=== PATIENT | male | born 1955 | race African-American/Black ===

== ENCOUNTER 2019-07-09 15:48 | Inpatient (IN) | payer MEDICARE, MEDICAID ==
[2019-07-09] MEDS ORDERED: Ketorolac Tromethamine 30 MG/ML VIAL IVP PRN (17:35)
[2019-07-09] MEDS ORDERED: Morphine 2 MG/ML SYRINGE SLOW IVP PRN (17:35)
[2019-07-09] MEDS ORDERED: Ondansetron PF 4 MG/2 ML Vial IVP PRN ×2 (17:35→20:17)
[2019-07-09] MEDS ORDERED: D5 1/2 NS w/20 mEq KCL 1,000 ML IV SCH (17:45)
[2019-07-09 18:12] VITALS: BMI 19.6
[2019-07-09] MEDS ORDERED: Ondansetron ODT 4 MG TAB PO PRN (20:17)
[2019-07-09] MEDS ORDERED: Guaifenesin DM 100-10/5 ML UDCUP PO PRN (20:17)
[2019-07-09] MEDS ORDERED: Acetaminophen 650 MG Suppository PR PRN (20:17)
[2019-07-09] MEDS ORDERED: Labetalol HCl 100 MG/20 ML VIAL SLOW IVP PRN (20:18)
[2019-07-09] MEDS ORDERED: hydrALAZINE 20 MG/ML VIAL SLOW IVP PRN (20:19)
[2019-07-09] MEDS ORDERED: Sodium Chloride 0.9% (PF) 10 ML VIAL FS PRN (20:29)
[2019-07-09] MEDS ORDERED: Famotidine/PF 20 mg/2ml Vial SLOW IVP SCH (21:00)
--- NOTE | 2019-07-09 21:20 | HP ---
PRIMARY CARE DOCTOR: Previously, Dr. Hendricks. CHIEF COMPLAINT: Abdominal pain. HISTORY OF PRESENT ILLNESS: This is a 64-year-old male with a history of hypertension, pancreatitis a few years ago, worked up at [facility], likely alcohol-related and chronic constipation, who had some anemia a few years ago and had negative EGD and colonoscopy in the hospital. The patient reports over the last 5 days, he has been having periumbilical abdominal pain. His pain is getting slowly worse over that time, not radiating anywhere, not associated with any nausea or vomiting. The pain is crampy in nature. He does report having had constipation previously and he is on laxatives for it and he has not had any bowel movements for the last few days. He tried MiraLAX and [id number] laxatives without any improvement. He is passing some flatus. Denied any blood or melena in his bowel movements before he stopped passing them. They were just constipated. The patient was seen in [facility]. There, he was noted to have a distended abdomen. He had a CT scan done, which showed likely partially obstructing colonic mass along with lymphadenopathy concerning for cancer. He also had some dilatation of his pancreatic duct and some lesions in his pancreas, uncertain if those are old or related to his previous pancreatitis or they were new. He also had a very elevated lipase over 1000. The patient was given some pain medications and fluids in the emergency room there and is feeling much more comfortable and was transferred here for surgical consultation. REVIEW OF SYSTEMS: CONSTITUTIONAL: No fevers, no chills. No weight loss. EYES: No double vision or blurred vision. ENT: No congestion, drainage, or sore throat. CARDIOVASCULAR: No chest pain. No palpitations or racing heart. PULMONARY: No coughing, wheezing, or shortness of breath. GASTROINTESTINAL: See HPI. GENITOURINARY: No dysuria or hematuria. MUSCULOSKELETAL: No muscle aches or joint pains. He does have some chronic low back pain, which is at baseline. SKIN: No rashes or lesions noted. NEUROLOGICAL: No numbness, tingling, or focal weakness. PAST MEDICAL HISTORY: 1. Hypertension. 2. Gastroesophageal reflux disease. 3. Chronic low back pain and cervical radiculopathy. 4. Previous bout of pancreatitis with questionable pseudocyst. PAST SURGICAL HISTORY: EGD and colonoscopy in 2017, which were normal except for some melanosis coli. SOCIAL HISTORY: The patient is a former smoker. He now just smokes a cigarette or a cigar on and off infrequently. He does report previously drinking alcohol 3-4 beers per day, but has not had any in the last 2 months. No recent illicit drug use. He did previously smoke marijuana. The patient lives with his significant other, Dulce Benavidez. His closest next of kin is his younger brother, Manan Arellano who would be his medical decision maker and he is currently a full code. ALLERGIES: NO KNOWN DRUG ALLERGIES. CURRENT MEDICATIONS: 1. Amlodipine 10 mg daily. 2. Vitamin C 500 mg daily. 3. Flexeril 10 mg daily as needed. 4. Colace 100 mg twice a day as needed. 5. Ferrous sulfate 325 mg twice [place] [address] units two capsules three times a day after meals and one capsule after snacks. 7. Multivitamin daily. 8. Urinozinc prostate formula tablet one tablet daily. 9. Omeprazole 20 mg daily. 10. Sennosides 2 tablets at night. FAMILY HISTORY: He reports his mother had diabetes and heart disease. The patient denied to me any family history of colon cancer. However, on his previous H and P from 2017, he reported both his mother and grandmother had colon cancer. PHYSICAL EXAMINATION: VITAL SIGNS: Blood pressure 141/82. Pulse 98, it was up above 100 initially in the [facility]. Temperature 99.2, O2 saturation 95% on room air. GENERAL: This is a well-developed, well-nourished, -[place] male, in no acute distress. HEENT: Pupils are equal, round, and reactive to light. Oropharynx clear without lesions, erythema, or exudate. NECK: Supple. No lymphadenopathy. No thyroid nodules or enlargement. HEART: Regular rate and rhythm. No murmurs, rubs, or gallops. LUNGS: Clear to auscultation bilaterally. No wheezes, crackles, or rhonchi. ABDOMEN: Distended, firm to palpation. Mild tenderness to deep palpation diffusely. He has hyperactive bowel sounds. No rebound tenderness. No specific organomegaly. EXTREMITIES: No clubbing, cyanosis, or edema. SKIN: No rashes or lesions noted. NEUROLOGICAL: Intact strength and sensation to all extremities. No facial droop. PSYCHIATRIC: Alert and oriented x3. Normal mood and affect. LABORATORY DATA: White blood cell count of 12,000 with 83% neutrophils, hemoglobin 12.8, hematocrit 39.3, platelet count 645. Complete metabolic panel is notable for glucose of 143, creatine kinase of 28, and lipase is elevated at 1333, the rest was normal. Lactic acid was negative. Urinalysis showed greater than a [address] glucose[address] No other abnormalities. CT scan of the abdomen and pelvis with IV contrast shows marked circumferential wall thickening causing narrowing of the colon lumen of the distal transverse colon and splenic flexure. Overall findings were suspicious for a large colonic malignancy causing partial colonic obstruction with dilatation of the proximal transverse colon, ascending colon, and small bowel. Also with some enlarged soft tissue nodularity involving the mesentery of the transverse mesocolon and left upper quadrant, small bowel mesentery suspicious for regional metastatic extension. The patient does have some interval enlargement of the distal main pancreatic duct with hypodense lesions now seen within the pancreatic tail suspicious for an IPMN type tumor. There are some small bilateral pleural effusions. Enlarging right renal cyst and mild to moderate free fluid in the pelvis. ASSESSMENT: 1. Acute pancreatitis, likely secondary to previous alcohol use versus obstruction from his cancer. I will make the patient n.p.o. for now. We will give IV fluids with sugar and potassium and we will consult the patient's previous director of adult epilepsy, Dr. Russell. 2. Circumferential obstructing lesion of the colon concerning for colon cancer, metastatic to the lymph nodes. We will consult General Surgery, Dr. Ford in the morning. We will make the patient n.p.o. The patient will likely need surgery. 3. Hypertension. We will give IV antihypertensives as needed. 4. Gastroesophageal reflux disease. We will give IV Protonix. 5. Deep venous thrombosis prophylaxis. Put the patient on SCDs bilaterally for now. 6. History of alcohol use. The patient has not had alcohol in the last 2 month and unlikely to have any sort of withdrawals. No need for ASE protocol at this time. 7. Previous tobacco abuse. The patient seems to have nearly quit smoking at this time. 8. Code status. The patient is a full code. His closest kin is his younger brother, Manan Arellano. He would also like his significant other, Dulce Benavidez involved in medical decision should he be incapacitated. Job ID: [id number]
[2019-07-09] MEDS: D5 1/2 NS w/10 mEq KCl 1,000 ML/1,000 ML BAG IV SCH (21:44)
[2019-07-10] MEDS: D5 1/2 NS w/10 mEq KCl 1,000 ML/1,000 ML BAG IV SCH ×3 (05:47→20:30)
[2019-07-10 06:50] LABS: #Eosinphils 0.2 thou/uL (0.0-0.7); #Lymphocytes 1.4 thou/uL (1.20-3.40); #Monocytes 0.9 thou/uL (0.11-0.59); #Neutrophils 6.2 thou/uL (1.40-6.50); %Basophils 0.3 % (0.0-1.0); %Eosinophils 2.6 % (0.0-10.0); %Lymphocytes 15.8 % (21.0-51.0); %Monocytes 10.7 % (0.0-10.0); %Neutrophils 70.5 % (42.0-75.0); Hemoglobin 10.9 g/dL (14.0-18.0); Mean Corpuscular HGB CONC 32.9 g/dL (32.0-36.0); Mean Corpuscular Hemoglobin 30.4 pg (27.0-31.0); Mean Corpuscular Volume 92.5 fL (78.0-98.0); Mean Platelet Volume 6.5 fL (7.4-10.4); Platelet Count 554 thou/uL (130-400); Red Blood Cell (RBC) Count 3.58 mill/uL (4.70-6.10); White Blood Cell (WBC) Count 8.8 thou/uL (4.8-10.8)
[2019-07-10 07:16] LABS: Anion Gap 11 mmol/L (10-20); BUN (Urea Nitrogen) 6 mg/dL (8.4-25.7); Calc. Creatinine Clearance 78 mL/min (70-130); Calcium 7.8 mg/dL (7.8-10.44); Carbon Dioxide 20 mmol/L (23-31); Chloride 104 mmol/L (98-107); Estimated GFR-MDRD Greater than 90; Glucose 118 mg/dL (80-115); Potassium 4.2 mmol/L (3.5-5.1); Sodium 131 mmol/L (136-145)
[2019-07-10] MEDS: Pantoprazole 40 MG VIAL IVP SCH (08:25)
[2019-07-10] MEDS ORDERED: GoLYTELY 4,000 ml Bottle PO SCH (09:00)
--- NOTE | 2019-07-10 11:07 | CON ---
DATE OF CONSULTATION: 07/10/2019 HISTORY OF PRESENT ILLNESS: Mr. Arellano is a 64-year-old man, who was admitted with worsening abdominal pain, distention, and inability to have bowel movements. The patient has a long-standing history of chronic constipation, which requires courses of stool softeners and laxatives. His abdominal distention has worsened over the last 2 weeks. As a result, the patient presented to the emergency department. He denies any unexplained weight loss. He denies any fevers or chills. He denies any hematochezia or melena. He last passed gas from the bottom this morning. He had a large loose bowel movement overnight. PAST MEDICAL HISTORY: Pertinent for recurrent chronic pancreatitis, which was presumed to be secondary to alcohol. Other pertinent past medical history includes chronic anemia, gastroesophageal reflux disease, and essential hypertension. PAST SURGICAL HISTORY: Pertinent for upper and lower endoscopies in 2017 with findings at that time consistent with melanosis coli and no lesions to explain the cause of his severe anemia with hemoglobin, which was as low as 4 g/dL. The patient apparently has had an outpatient endoscopic ultrasound to evaluate his pancreas as well. SOCIAL HISTORY: The patient used to smoke approximately half a pack of cigarettes per day and did so for over 20 years. He has not smoked now since 2018. He used to drink heavily including 3 to 4 beers per day in addition to hard liquor. He has not had any alcohol by his account over the last 2 months. He denies any illicit drug abuse. FAMILY HISTORY: Noncontributory for this patient's age. PREHOSPITAL MEDICATIONS: Include: 1. Ferrous sulfate 325 mg p.o. b.i.d. 2. Vitamin C 500 mg p.o. daily. 3. Creon DR 36,000 units two capsules t.i.d. 4. Amlodipine 10 mg p.o. daily. 5. Flexeril 10 mg p.o. p.r.n. 6. Colace 100 mg p.o. b.i.d. p.r.n. constipation. 7. Omeprazole 20 mg p.o. daily. 8. Sennosides two tablets p.o. at bedtime. ALLERGIES: THE PATIENT HAS NO KNOWN DRUG ALLERGIES. REVIEW OF SYSTEMS: Ten-point review of systems is essentially unremarkable except as stated in past medical history and chief complaint. PHYSICAL EXAMINATION: GENERAL: This reveals a 64-year-old normally-developed man, who is otherwise coherent, interactive, and appears stated age. The patient is alert and oriented x3, appears to be in no acute distress at time of my evaluation. VITAL SIGNS: Include blood pressure 113/75, pulse 85, respiratory rate 20, temperature 98.5 degrees Fahrenheit, oxygen saturation is 98% on room air. HEENT: Pupils equally round and reactive to light and accommodation. He has no scleral icterus present. HEART: Reveals regular rate and rhythm. No murmurs or gallops auscultated. LUNGS: Clear to auscultation bilaterally. Breathing, regular and nonlabored. ABDOMEN: Soft, but distended with gas. He has no abdominal tenderness to palpation. Liver and spleen are nonpalpable below costal margins. NEUROLOGIC: Reveals no focal deficits present. LABORATORY FINDINGS: Today include a CBC with 8800 white blood cells, hemoglobin and hematocrit 10.9 and 33.2 respectively, and platelet count is 554,000. Metabolic profile; sodium 131, potassium 4.2, chloride is 104, bicarb is 20, BUN is 6, creatinine is 0.78, and glucose 118. The metabolic profile obtained yesterday in [place] included serum lipase noted at 1333. I have personally reviewed the CT scan of the abdomen and pelvis, which was obtained yesterday, which reveals large mass causing near obstruction of the distal transverse colon. Additionally, 1.3 cm lesion is noted in the pancreatic tail. There is some soft tissue nodularity involving the transverse mesocolon as well. Qchn-yw-[id number] free intraperitoneal fluid is noted. IMPRESSION: 1. Acute large bowel obstruction, likely secondary to neoplastic process, unsure if this is a primary or metastatic disease. 2. Pancreatic lesion with acute pancreatitis. RECOMMENDATIONS: 1. We will ask Gastroenterology to evaluate the patient for possible colonoscopy and biopsy. 2. The patient will certainly need a surgical intervention, however, we will defer plans for surgery pending the outcome of the colonoscopy with biopsy. Thank you again, Dr. Anne, for allowing me the opportunity to participate in the care of this patient. Job ID: [id number]
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
--- NOTE | 2019-07-10 20:40 | PDOC.HOSPP ---
- Subjective Encounter Date: 07/10/19 Subjective: The patient is tolerating bowel prep. - Objective Vital Signs & Weight: Vital Signs (12 hours) Temp Pulse Resp BP Pulse Ox 07/10/19 16:00 98.2 F 82 20 138/83 99 07/10/19 11:35 97.8 F 78 20 141/84 H 95 Weight Admit Weight 129 lb 4.8 oz Weight 129 lb 4.8 oz I&O: 07/09/19 07/10/19 07/11/19 06:59 06:59 06:59 Intake Total 1150 4550 Output Total 350 Balance 1150 4200 Result Diagrams: 07/10/19 05:57 07/10/19 05:57 Hospitalist ROS - Medication Medications: Active Medications Generic Name Dose Route Start Last Admin Trade Name Freq PRN Reason Stop Dose Admin Potassium Chloride/Dextrose/Sod Cl 1,000 ml in 1,000 mls @ 125 mls/hr 20:30 07/10/19 13:58 D5 1/2 Ns W/10 Meq Kcl IV 1,000 mls .Q8H GABRIELA Administration Pantoprazole Sodium 40 mg 07/10/19 09:00 07/10/19 08:25 Protonix IVP 40 mg DAILY GABRIELA Administration - Exam General Appearance: awake alert ENT: normocephalic atraumatic Neck: supple, no JVD Heart: RRR, no murmur, no gallops, no rubs Respiratory: CTAB Gastrointestinal: soft, non-tender, distended Hosp A/P (1) Colonic mass Code(s): K63.89 - OTHER SPECIFIED DISEASES OF INTESTINE Status: Acute (2) Pancreatic mass Status: Acute (3) Chronic anemia Code(s): D64.9 - ANEMIA, UNSPECIFIED Status: Acute (4) Chronic back pain Code(s): M54.9 - DORSALGIA, UNSPECIFIED; G89.29 - OTHER CHRONIC PAIN Status: Chronic (5) HTN (hypertension) Code(s): I10 - ESSENTIAL (PRIMARY) HYPERTENSION Status: Chronic Qualifiers: - Plan Plan for colonoscopy and biopsy for colon mass tomorrow. Continue current medical management. Appreciate GI and Surgery teama.
--- NOTE | 2019-07-10 22:51 | PRG ---
DATE OF SERVICE: 07/10/2019 SUBJECTIVE: The patient was seen this evening during rounds. He was on the bedside commode and reported he had no distress. The patient is currently drinking GoLYTELY as he is scheduled to have a colonoscopy with biopsy tomorrow by Gastroenterology. OBJECTIVE: VITAL SIGNS: Temperature 98.2, pulse 82, respirations 20, oxygen saturation 99% on room air, and blood pressure 138/83. GENERAL: Well-appearing elderly male, sitting up on the bedside commode. No signs of acute distress. PULMONARY: Equal chest rise and fall. No signs of acute respiratory distress. ASSESSMENT: 1. Acute large bowel obstruction, likely secondary to neoplastic process. Unsure if primary or metastatic disease. 2. Pancreatic lesion with acute pancreatitis. PLAN: The patient is currently finishing bowel prep and will receive colonoscopy and biopsy tomorrow by Gastroenterology. We will follow up biopsy results and plan further surgical intervention and make recommendations after the biopsy has resulted. Job ID: [id number]
[2019-07-11] MEDS: Morphine 4 MG/ML VIAL SLOW IVP PRN (03:56)
[2019-07-11] MEDS: D5 1/2 NS w/10 mEq KCl 1,000 ML/1,000 ML BAG IV SCH ×3 (03:58→18:28)
[2019-07-11 07:26] LABS: #Eosinphils 0.1 thou/uL (0.0-0.7); #Lymphocytes 1.1 thou/uL (1.20-3.40); #Monocytes 1.1 thou/uL (0.11-0.59); %Basophils 0.3 % (0.0-1.0); %Eosinophils 0.5 % (0.0-10.0); %Lymphocytes 8.6 % (21.0-51.0); %Monocytes 7.9 % (0.0-10.0); %Neutrophils 82.7 % (42.0-75.0); Mean Corpuscular HGB CONC 33.7 g/dL (32.0-36.0); Mean Corpuscular Hemoglobin 31.2 pg (27.0-31.0); Mean Corpuscular Volume 92.5 fL (78.0-98.0); Mean Platelet Volume 6.3 fL (7.4-10.4); Platelet Count 596 thou/uL (130-400); RBC Distribution Width 13.1 % (11.5-14.5); Red Blood Cell (RBC) Count 3.54 mill/uL (4.70-6.10); White Blood Cell (WBC) Count 13.3 thou/uL (4.8-10.8)
[2019-07-11 07:45] LABS: ALT (SGPT) 11 U/L (8-55); AST (SGOT) 13 U/L (5-34); Albumin 3.1 g/dL (3.4-4.8); Alkaline Phosphatase 69 U/L (40-110); Anion Gap 13 mmol/L (10-20); BUN (Urea Nitrogen) Less than 4 mg/dL (8.4-25.7); Bilirubin, Total 0.4 mg/dL (0.2-1.2); Calc. Creatinine Clearance 80 mL/min (70-130); Carbon Dioxide 19 mmol/L (23-31); Chloride 105 mmol/L (98-107); Estimated GFR-MDRD Greater than 90; Globulin 3.3 g/dL (2.4-3.5); Glucose 153 mg/dL (80-115); Lipase 454 U/L (8-78); Phosphorus 2.1 mg/dL (2.3-4.7); Potassium 3.8 mmol/L (3.5-5.1); Protein, Total 6.4 g/dL (5.8-8.1); Sodium 133 mmol/L (136-145)
[2019-07-11] MEDS ORDERED: Promethazine HCl 25 MG/ML VIAL SLOW IVP PRN (08:09)
[2019-07-11] MEDS ORDERED: Promethazine HCl 25 MG/ML VIAL IM PRN (08:09)
[2019-07-11] MEDS ORDERED: Ondansetron HCl/PF 4 MG/2 ML Vial IVP PRN (08:09)
--- NOTE | 2019-07-11 08:33 | OP ---
DATE OF PROCEDURE: 07/11/2019 SUPERVISOR ESTERS AND EMULSIFIERS SURGEON: None. PROCEDURE PERFORMED: Colonoscopy with biopsies. INDICATIONS FOR PROCEDURE: Acute large bowel obstruction, with CT demonstrating a circumferential mass lesion at the area of the splenic flexure and distal transverse colon, unclear if this represents primary or metastatic disease. MEDICATIONS: See Anesthesia record. FINDINGS: After discussion of the risks, benefits, and alternatives of the procedure, informed consent was obtained and witnessed. Pre-endoscopic cardiopulmonary examination was satisfactory. Time-out was performed before sedation was achieved. Sedation was achieved with Anesthesia assistance in the endoscopy unit. A Pentax adult colonoscope was prepared. Digital rectal exam was performed, which was normal. The colonoscope was inserted into the anus and passed forward to the cecum in the usual fashion. The cecal base was identified by the appendiceal orifice as well as the ileocecal valve. The terminal ileum was intubated, and the ileal mucosa appeared normal. The colonoscope was slowly withdrawn in a gradual circumferential manner with careful examination of the entire colonic mucosa. The quality of the prep was good. In the area of the splenic flexure from 40 to 60 cm from the anal verge, there is an area of diffuse colonic edema. For most of this area, the mucosa appears normal, but quite edematous. At 40 cm, there is a smaller portion of this area, which does appear indeed more masslike and more friable and more erythematous. Overall, the appearance of the area seems most concerning for extrinsic compression, except for this one area at 40 cm. Photodocumentation was obtained. I biopsied this area extensively. The remainder of the colonic mucosa appeared normal. Careful forward views of the rectum appeared normal. The colonoscope was completely withdrawn, and the patient allowed to recover. The patient tolerated the procedure well. There were no immediate postprocedure complications. IMPRESSION: 1. Diffuse edematous appearing mucosa from 40 to 60 cm in the area of the splenic flexure, with only a smaller portion at 40 cm appearing more masslike, with greater uricemia and nodularity. This area was biopsied extensively. Unable to definitively say if this process represents extrinsic compression. Photodocumentation obtained. Biopsied extensively. 2. Otherwise normal colonoscopy to the terminal ileum. RECOMMENDATIONS: 1. Full liquid diet. 2. Follow up results of biopsies. 3. Surgical Service is following as well. Job ID: [id number]
[2019-07-11] MEDS: Pantoprazole 40 MG VIAL IVP SCH (08:48)
[2019-07-11] MEDS ORDERED: Lidocaine 1% PF 5 ML VIAL ONE (11:48)
[2019-07-11] MEDS ORDERED: PROPOFOL 200 MG/20 ML VIAL ONE (11:48)
--- NOTE | 2019-07-11 13:25 | PRG ---
DATE OF SERVICE: 07/11/2019 SUBJECTIVE: Mr. Arellano is a 64-year-old man, admitted with near-obstructing transverse colonic mass. Bowel was prepped yesterday. The patient underwent a colonoscopy today, which did not reveal any obstructive mass. The endoscopy, however, reported some edematous-appearing mucosa, multiple areas of which was biopsied. At the time of my evaluation, the patient is awake and alert. He denies any significant abdominal pain. He clearly has no nausea. OBJECTIVE: VITAL SIGNS: Today include blood pressure 133/80, pulse is 101, respiratory rate is 20, temperature 98.5 degrees Fahrenheit, and oxygen saturation 98% on room air. ABDOMEN: Soft, moderately distended, but nontender to palpation. He clearly has no peritoneal signs on examination. LABORATORY FINDINGS: Today with CBC: 13,300 white blood cells, hemoglobin and hematocrit 11.0 and 32.7 respectively, and platelet count 596,000. Metabolic profile: Sodium 133, potassium 3.8, chloride is 105, bicarb 19, BUN 13, and creatinine 0.76. Serum lipase is 454, down from 1233 on 07/09/2019. IMPRESSIONS: 1. Resolving acute pancreatitis. 2. Status post colonoscopy with no evidence of colonic obstruction or abnormal mass. PLAN: No acute surgical indication for this patient at this time. We will await results of the biopsies and make further recommendations as necessary. The patient is started on clear liquid diet today, which may be advanced to regular at the discretion of the primary service. Job ID: [id number]
--- NOTE | 2019-07-11 20:20 | PDOC.HOSPP ---
- Subjective Encounter Date: 07/11/19 Subjective: Status post colonoscopy. The patient has no complaints and is tolerating his diet. - Objective Vital Signs & Weight: Vital Signs (12 hours) Temp Pulse Resp BP Pulse Ox 07/11/19 19:43 98.1 F 116 H 18 134/55 L 94 L 07/11/19 18:47 103 H 20 95 07/11/19 16:44 99.5 F 108 H 18 127/83 95 07/11/19 11:44 98.5 F 101 H 20 133/80 98 07/11/19 08:40 98 F 103 H 20 135/74 96 Weight Admit Weight 129 lb 4.8 oz Weight 129 lb 4.8 oz I&O: 07/10/19 07/11/19 07/12/19 06:59 06:59 06:59 Intake Total 1150 4550 2125 Output Total 350 1500 Balance 1150 4200 625 Result Diagrams: 07/11/19 06:58 07/11/19 06:58 Hospitalist ROS - Medication Medications: Active Medications Generic Name Dose Route Start Last Admin Trade Name Freq PRN Reason Stop Dose Admin Potassium Chloride/Dextrose/Sod Cl 1,000 ml in 1,000 mls @ 125 mls/hr 20:30 07/11/19 18:28 D5 1/2 Ns W/10 Meq Kcl IV 1,000 mls .Q8H GABRIELA Administration Morphine Sulfate 4 mg 07/09/19 20:17 07/11/19 03:56 Morphine SLOW IVP 4 mg Q4H PRN Administration Severe Pain (7-10) Pantoprazole Sodium 40 mg 07/10/19 09:00 07/11/19 08:48 Protonix IVP 40 mg DAILY GABRIELA Administration - Exam General Appearance: awake alert ENT: normocephalic atraumatic Neck: supple Heart: RRR, no murmur, no gallops, no rubs Respiratory: CTAB, no wheezes, no rales, no ronchi Gastrointestinal: soft, non-tender, non-distended, normal bowel sounds Hosp A/P (1) Colonic mass Code(s): K63.89 - OTHER SPECIFIED DISEASES OF INTESTINE Status: Acute (2) Pancreatic mass Status: Acute (3) Chronic anemia Code(s): D64.9 - ANEMIA, UNSPECIFIED Status: Acute (4) Chronic back pain Code(s): M54.9 - DORSALGIA, UNSPECIFIED; G89.29 - OTHER CHRONIC PAIN Status: Chronic (5) HTN (hypertension) Code(s): I10 - ESSENTIAL (PRIMARY) HYPERTENSION Status: Chronic Qualifiers: - Plan Colonoscopy did not reveal any colonic mass. Mucosal edema was noted in the area of the splenic flexure and biopsies were performed. Awaiting further recommendations from GI regarding the pancreatic lesion. No plan for surgical intervention at this time until the biopsy results are available.
[2019-07-11] MEDS: Ketorolac Tromethamine 30 MG/ML VIAL IVP PRN (20:25)
[2019-07-11] MEDS: Acetaminophen 325 MG TAB PO PRN (20:26)
--- NOTE | 2019-07-12 00:26 | PRG ---
DATE OF SERVICE: 07/11/2019 SUBJECTIVE: The patient was seen this evening during rounds. He is post colonoscopy with biopsy by Gastroenterology. He reported his pain was well controlled and he was tolerating a liquid diet. He was resting comfortably. OBJECTIVE: VITAL SIGNS: Temperature 98.1, pulse 110, respirations 18, oxygen saturation 97% on room air, and blood pressure 140/81. GENERAL: Well-appearing elderly male, lying in bed with no signs of acute distress. PULMONARY: Equal chest rise and fall. No signs of acute respiratory distress. ASSESSMENT: 1. Colon mass suspicious for malignancy, likely causing large bowel obstruction. 2. Pancreatic lesions concerning for malignancy as well. 3. Free abdominal fluid. PLAN: We are pending biopsy results from the colonoscopy completed today. We will make further recommendations after those results have been reported. Job ID: [id number]
[2019-07-12] MEDS: D5 1/2 NS w/10 mEq KCl 1,000 ML/1,000 ML BAG IV SCH ×3 (02:49→19:41)
[2019-07-12 06:12] LABS: Hemoglobin 9.9 g/dL (14.0-18.0); Mean Corpuscular HGB CONC 33.4 g/dL (32.0-36.0); Mean Corpuscular Hemoglobin 30.7 pg (27.0-31.0); Mean Corpuscular Volume 92.1 fL (78.0-98.0); Mean Platelet Volume 6.1 fL (7.4-10.4); Platelet Count 526 thou/uL (130-400); RBC Distribution Width 13.1 % (11.5-14.5); Red Blood Cell (RBC) Count 3.23 mill/uL (4.70-6.10); White Blood Cell (WBC) Count 11.2 thou/uL (4.8-10.8)
[2019-07-12 06:16] LABS: Band 3 % (5-11); Eosinophils 3 % (0-10); Lymphocytes 3 % (21-51); MDiff Complete? YES; Monocytes 8 % (0-10); Neutrophil 83 % (42-75)
[2019-07-12 06:25] LABS: Anion Gap 9 mmol/L (10-20); BUN (Urea Nitrogen) 6 mg/dL (8.4-25.7); Calc. Creatinine Clearance 80 mL/min (70-130); Calcium 7.8 mg/dL (7.8-10.44); Carbon Dioxide 22 mmol/L (23-31); Chloride 107 mmol/L (98-107); Estimated GFR-MDRD Greater than 90; Glucose 122 mg/dL (80-115); Magnesium 1.9 mg/dL (1.6-2.6); Potassium 4.1 mmol/L (3.5-5.1); Sodium 134 mmol/L (136-145)
[2019-07-12] MEDS: Pantoprazole 40 MG VIAL IVP SCH (07:51)
[2019-07-12] MEDS ORDERED: Sodium Phosphate 15 MMOL in Sodium Chloride 0.9% 250 ML 250 ML IVPB SCH (09:30)
--- NOTE | 2019-07-12 10:14 | PRG ---
DATE OF SERVICE: 07/12/2019 SUBJECTIVE: The patient remains on the medical floor. He is currently awake, alert, in no distress, talking on the telephone to his family. The patient continues to pass gas, states he has not had a bowel movement yet this morning. The patient is tolerating a full liquid diet at this time. The patient's pain is controlled at this time. The patient voices no complaints or concerns. The patient denies any nausea or vomiting. OBJECTIVE: VITAL SIGNS: Blood pressure 127/85; temperature high at 100, currently 98.4; pulse 93; respirations 18; SpO2 of 94% on room air. GENERAL: Well-appearing elderly male, in no acute distress. ABDOMEN: Soft, moderately distended, nontender to palpation. No peritoneal signs. EXTREMITIES: Moves all extremities. No focal deficits. LABORATORY DATA: WBC 11.2, RBC 3.23, hemoglobin 9.9, hematocrit 29.8, platelets 526. Sodium 134, potassium 4.1, chloride 107, carbon dioxide 22, BUN 6, creatinine 0.76, estimated GFR greater than 90, glucose 122, calcium 7.8, phosphorus 2.0, magnesium 1.9. DIAGNOSTICS: There are no diagnostics to review today. ASSESSMENT: 1. Resolving acute pancreatitis. 2. Status post colonoscopy with no evidence of colonic obstruction or abdominal mass. 3. Hypophosphatemia. PLAN: No surgical indication for this patient at this time. We will await results of the biopsy and make further recommendations as necessary. Continue full liquid diet and may advance to regular at the discretion of the primary service. The plan was discussed with Dr. Ford. Job ID: [id number]
[2019-07-12] MEDS: Ketorolac Tromethamine 30 MG/ML VIAL IVP PRN ×2 (13:02→20:16)
[2019-07-12] MEDS: Morphine 4 MG/ML VIAL SLOW IVP PRN (15:49)
--- NOTE | 2019-07-12 20:35 | PDOC.HOSPP ---
- Subjective Encounter Date: 07/12/19 Encounter Time: 09:00 Subjective: no overnight events. Feeling well, has soft bowel movements, no complaints. pending results of splenic flexure biopsy - Objective Vital Signs & Weight: Vital Signs (12 hours) Temp Pulse Resp BP Pulse Ox 07/12/19 19:47 99.4 F 113 H 18 121/70 92 L 07/12/19 15:48 98.2 F 100 20 125/84 97 07/12/19 13:00 98.6 F 07/12/19 09:07 98.4 F Weight Admit Weight 129 lb 4.8 oz Weight 129 lb 4.8 oz I&O: 07/11/19 07/12/19 07/13/19 06:59 06:59 06:59 Intake Total 4550 3775 2125 Output Total 350 2600 1200 Balance 4200 1175 925 Result Diagrams: 07/12/19 05:49 07/12/19 05:49 Additional Labs: Accuchecks 07/12/19 07/12/19 16:22 12:09 POC Glucose 134 H 109 Hospitalist ROS - Review of Systems Constitutional: denies: fever, chills, sweats, weakness, malaise, other Respiratory: denies: cough, dry, shortness of breath, hemoptysis, SOB with excertion, pleuritic pain, sputum, wheezing, other Cardiovascular: denies: chest pain, palpitations, orthopnea, paroxysmal noc. dyspnea, edema, light headedness, other Gastrointestinal: denies: nausea, vomiting, abdominal pain, diarrhea, constipation, melena, hematochezia, other Genitourinary: denies: dysuria, frequency, incontinence, hematuria, retention, other - Medication Medications: Active Medications Generic Name Dose Route Start Last Admin Trade Name Freq PRN Reason Stop Dose Admin Acetaminophen 650 mg 07/09/19 20:17 07/11/19 20:26 Tylenol PO 650 mg Q4H PRN Administration Headache/Fever/Mild Pain (1-3) Potassium Chloride/Dextrose/Sod Cl 1,000 ml in 1,000 mls @ 125 mls/hr 20:30 07/12/19 19:41 D5 1/2 Ns W/10 Meq Kcl IV 1,000 mls .Q8H GABRIELA Administration Ketorolac Tromethamine 15 mg 07/09/19 20:17 07/12/19 20:16 Toradol IVP 07/14/19 20:18 15 mg Q6H PRN Administration Moderate Pain (4-6) Morphine Sulfate 4 mg 07/09/19 20:17 07/12/19 15:49 Morphine SLOW IVP 4 mg Q4H PRN Administration Severe Pain (7-10) Pantoprazole Sodium 40 mg 07/10/19 09:00 07/12/19 07:51 Protonix IVP 40 mg DAILY GABRIELA Administration Sodium Chloride 10 ml 07/09/19 20:29 07/12/19 07:51 Normal Saline Pf FS 10 ml PRN PRN Administration RECONSTITUTION - Exam General Appearance: awake alert Heart: RRR, no murmur, no gallops, no rubs, normal peripheral pulses Respiratory: CTAB, no wheezes, no rales, no ronchi, normal chest expansion, no tachypnea, normal percussion Gastrointestinal: soft, non-tender, non-distended, normal bowel sounds, no palpable masses, no hepatomegaly, no splenomegaly, no bruit Extremities: no edema Psychiatric: normal affect, normal behavior, A&O x 3 Hosp A/P - Plan #pancreatic mass #splenic flexure edema -pending biopsy results -tolerating full liquid -advanced to pureed diet otherwise management unchanged
[2019-07-13] MEDS: D5 1/2 NS w/10 mEq KCl 1,000 ML/1,000 ML BAG IV SCH ×3 (04:42→20:01)
--- NOTE | 2019-07-13 05:55 | PRG ---
DATE OF SERVICE: 07/12/2019 SUBJECTIVE: This 64-year-old male hospitalized with abdominal pain and nausea, abnormal CAT scan. The CAT scan showed pancreatic tail mass and also a splenic flexure mass. He underwent colonoscopy by Dr. Bonilla Perera yesterday. The colonoscopy did show a mass lesion in the left colon, but appears to be extrinsic compression as per Dr. Bonilla Perera's note. He is on clear liquid diet. He is also on IV fluid and actually better. He has no abdominal pain at this time. No nausea , passing flatus and not . OBJECTIVE: GENERAL: Appears comfortable, in no acute distress. VITAL SIGNS: Stable. Temperature is 98.4 degrees Fahrenheit, pulse is 85, blood pressure CARDIOVASCULAR SYSTEM: First and second sounds are heard. LUNGS: Clear to auscultation. ABDOMEN: Distended and soft to firm. Abdomen has actually no tenderness. Active bowel . LABORATORY DATA: Today WBC 11,200, hemoglobin is 9.9, hematocrit 29.8, platelet count is 526,000, polymorphs 83, bands 3. Chem-7 normal today. Glucose 122. . CLINICAL IMPRESSION: 1. Pancreatic mass. 2. Colonic mass with partial compression of the left colon. The scope could be advanced all the way into the ileum without any difficulty. The biopsies are pending. RECOMMENDATIONS: Continue analgesics. Continue clear liquid diet, advance diet as tolerated if he remains pain-free. The patient will be seen by Dr. Ford . Job ID: [id number]
[2019-07-13] MEDS: Pantoprazole 40 MG VIAL IVP SCH (08:45)
--- NOTE | 2019-07-13 09:15 | PRG ---
DATE OF SERVICE: 07/13/2019 SUBJECTIVE: This is a 64-year-old male, hospitalized with abdominal pain nausea. The patient's abdominal CAT scan showed pancreatic mass over the tail of the pancreas and also a mass lesion in the splenic flexure of the colon. He had a colonoscopy by Dr. Bonilla Perera 2 days ago and the impression was that he is most likely extrinsic compression. He had a mass lesion of the left colon, which was biopsied. As per Dr. Perera, he feels this . Also, the scope could be advanced into the cecum without difficulty. He is on clear liquid diet. He is passing gas and also had some liquid stool. Abdominal pain is markedly improved. There is no nausea or vomiting. PHYSICAL EXAMINATION: GENERAL: Appears comfortable. VITAL SIGNS: Afebrile, pulse is 97, blood pressure 131/81. HEENT: Conjunctivae are clear. CARDIOVASCULAR: 1st and 2nd heart sound. LUNGS: Clear to auscultation. ABDOMEN: Distended, but softer than yesterday. Abdomen is nontender today. There is no organomegaly. No masses. IMPRESSION: 1. Pancreatic mass. 2. Colonic mass with colonoscopy showing a lesion at 40 cm. Biopsies pending. RECOMMENDATIONS: 1. Continue present treatment. 2. Await biopsy and decide further course of therapy. Job ID: [id number]
[2019-07-13] MEDS: Acetaminophen 325 MG TAB PO PRN (12:53)
--- NOTE | 2019-07-13 13:32 | PRG ---
DATE OF SERVICE: 07/13/2019 SUBJECTIVE: The patient remains on the medical floor. He is currently awake, alert, in no distress, talking on the telephone. The patient continues to have bowel movements and passing gas. The patient continues to tolerate a full liquid diet. The patient voices no complaints or concerns at this time. The patient continues to have some mild diffuse abdominal pain, which is unchanged. Abdomen remains distended, but soft. No peritoneal signs. Surgery will continue to follow. Awaiting biopsy results to make further recommendations. Again, no surgical indication for this patient at this time. The plan was discussed with Dr. Ford. Job ID: [id number]
[2019-07-13] MEDS: Ketorolac Tromethamine 30 MG/ML VIAL IVP PRN (20:00)
--- NOTE | 2019-07-13 20:58 | PDOC.HOSPP ---
- Subjective Encounter Date: 07/13/19 Encounter Time: 10:00 Subjective: no overnight events. tolerating solid diet and having regular bowel movements. Further management pending bipsy results - Objective Vital Signs & Weight: Vital Signs (12 hours) Temp Pulse Resp BP Pulse Ox 07/13/19 19:47 100.9 F H 99 20 154/84 H 92 L 07/13/19 16:05 98.0 F 91 07/13/19 11:50 98.9 F 96 Weight Admit Weight 129 lb 4.8 oz Weight 129 lb 4.8 oz I&O: 07/12/19 07/13/19 07/14/19 06:59 06:59 06:59 Intake Total 3775 3825 2100 Output Total 2600 2200 1050 Balance 1175 1625 1050 Result Diagrams: 07/12/19 05:49 07/12/19 05:49 Hospitalist ROS - Review of Systems Constitutional: denies: fever, chills, sweats, weakness, malaise, other Respiratory: denies: cough, dry, shortness of breath, hemoptysis, SOB with excertion, pleuritic pain, sputum, wheezing, other Cardiovascular: denies: chest pain, palpitations, orthopnea, paroxysmal noc. dyspnea, edema, light headedness, other Gastrointestinal: denies: nausea, vomiting, abdominal pain, diarrhea, constipation, melena, hematochezia, other Genitourinary: denies: dysuria, frequency, incontinence, hematuria, retention, other - Medication Medications: Active Medications Generic Name Dose Route Start Last Admin Trade Name Freq PRN Reason Stop Dose Admin Acetaminophen 650 mg 07/09/19 20:17 07/13/19 12:53 Tylenol PO 650 mg Q4H PRN Administration Headache/Fever/Mild Pain (1-3) Potassium Chloride/Dextrose/Sod Cl 1,000 ml in 1,000 mls @ 125 mls/hr 20:30 07/13/19 20:01 D5 1/2 Ns W/10 Meq Kcl IV 1,000 mls .Q8H GABRIELA Administration Ketorolac Tromethamine 15 mg 07/09/19 20:17 07/13/19 20:00 Toradol IVP 07/14/19 20:18 15 mg Q6H PRN Administration Moderate Pain (4-6) Morphine Sulfate 4 mg 07/09/19 20:17 07/12/19 15:49 Morphine SLOW IVP 4 mg Q4H PRN Administration Severe Pain (7-10) Pantoprazole Sodium 40 mg 07/10/19 09:00 07/13/19 08:45 Protonix IVP 40 mg DAILY GABRIELA Administration Sodium Chloride 10 ml 07/09/19 20:29 07/12/19 07:51 Normal Saline Pf FS 10 ml PRN PRN Administration RECONSTITUTION - Exam General Appearance: NAD, awake alert Heart: RRR, no murmur, no gallops, no rubs Respiratory: CTAB, no wheezes, no rales, no ronchi Gastrointestinal: non-tender, normal bowel sounds Gastrointestinal - other findings: distended, worse than yesteday Psychiatric: normal affect, normal behavior, A&O x 3 Hosp A/P - Plan #pancreatic mass #splenic flexure edema -pending biopsy results -tolerating pureed diet -mild worsening of abdominal distention has regular bowel movements -management pending biopsy results -will continue pureed diet for now considering abdominal distention mildly worse otherwise management unchanged
[2019-07-14] MEDS: D5 1/2 NS w/10 mEq KCl 1,000 ML/1,000 ML BAG IV SCH ×3 (05:48→22:02)
[2019-07-14 06:00] LABS: Anion Gap 10 mmol/L (10-20); BUN (Urea Nitrogen) 6 mg/dL (8.4-25.7); Calc. Creatinine Clearance 75 mL/min (70-130); Carbon Dioxide 23 mmol/L (23-31); Chloride 107 mmol/L (98-107); Estimated GFR-MDRD Greater than 90; Glucose 137 mg/dL (80-115); Hemoglobin 9.3 g/dL (14.0-18.0); Magnesium 1.9 mg/dL (1.6-2.6); Mean Corpuscular HGB CONC 33.8 g/dL (32.0-36.0); Mean Corpuscular Hemoglobin 31.2 pg (27.0-31.0); Mean Corpuscular Volume 92.2 fL (78.0-98.0); Mean Platelet Volume 6.5 fL (7.4-10.4); Phosphorus 2.2 mg/dL (2.3-4.7); Platelet Count 623 thou/uL (130-400); RBC Distribution Width 13.4 % (11.5-14.5); Red Blood Cell (RBC) Count 2.99 mill/uL (4.70-6.10); Sodium 136 mmol/L (136-145); White Blood Cell (WBC) Count 8.5 thou/uL (4.8-10.8)
[2019-07-14 06:24] LABS: Band 2 % (5-11); Eosinophils 2 % (0-10); Lymphocytes 10 % (21-51); MDiff Complete? YES; Monocytes 8 % (0-10); Neutrophil 78 % (42-75); Platelet Morphology Comment Appears Increased
[2019-07-14] MEDS ORDERED: Sodium Phosphate 15 MMOL in Sodium Chloride 0.9% 250 ML 250 ML IVPB SCH (07:45)
[2019-07-14] MEDS: Pantoprazole 40 MG VIAL IVP SCH (08:07)
--- NOTE | 2019-07-14 15:29 | PRG ---
DATE OF SERVICE: 07/14/2019 REASON FOR CONSULTATION: Abnormal GI imaging showing a pancreatic mass with involvement of the colon at the splenic flexure, colonoscopy with possible malignancy at the splenic flexure. SUBJECTIVE: Today, the patient states that he continues to have abdominal pain, but has improved from previous, now currently reaching a severity of 3/10 to 4/10, but will at times spike to 10/10. The pain is currently intermittent, occurring multiple times during the day, but will only last for approximately 10 to 20 minutes in duration, and completely resolve. He has had approximately 3 to 5 semi-solid bowel movements over the last 24 hours with no difficulty with defecation. Otherwise, he denies any nausea, vomiting, fevers, chills, GI bleeding, dysphagia, or odynophagia. OBJECTIVE: VITAL SIGNS: Temperature 98.4, pulse 97, blood pressure 129/80, respiratory rate 18, and saturating 94% on room air. GENERAL: The patient was lying in bed, in no acute distress. Alert and oriented x4. CARDIOVASCULAR: Regular rate and rhythm. RESPIRATORY: Clear to auscultation bilaterally. ABDOMEN: Normoactive bowel sounds. Soft, nontender. Mild abdominal distention. EXTREMITIES: No cyanosis, clubbing, or edema. LABORATORY DATA: CBC with a white blood cell count of 8.5, hemoglobin 9.3, hematocrit 27.6, and platelets 623. Chemistry with a sodium of 136, potassium 4, chloride 107, CO2 of 23, BUN 6, creatinine 0.82, and glucose 137. IMAGING DATA: No current GI imaging is available for review. ASSESSMENT AND PLAN: The patient is a 64-year-old male with past medical history of hypertension, gastroesophageal reflux disease, cervical radiculopathy, chronic lower back pain, and chronic pancreatitis with pancreatic pseudocyst formation, presenting with increasing abdominal pain and gastrointestinal imaging concerning for the presence of a pancreatic mass/malignancy. Abnormal gastrointestinal imaging/possible pancreatic malignancy: The patient initially presented with increased abdominal discomfort with an elevated lipase, concerning for the presence of an [id number] bout of pancreatitis however. CT scan obtained on admission showed a pancreatic tail mass as well as what appeared to be a circumferential colonic mass involving the distal transverse and splenic flexure in addition to mesenteric involvement. Based on the initial imaging findings, it was concerning for metastatic disease from either a pancreatic or colonic primary. Colonoscopy was subsequently performed on 07/11/2019, which showed an area between 40 to 60 cm past the anal verge consisting of significant mucosal edema as well as a more masslike structure at approximately 40 cm past the anal verge. Biopsies were obtained from this region with pathology results still pending at this time. Based on the imaging findings and based on the images obtained during the colonoscopy, this seems to be more extrinsic compression or extrinsic involvement of the pancreatic mass extending into the colon and resulting in an inflammatory type effect. However, with the mass like lesion seen during the colonoscopy, a colonic primary invading through the wall of the colon is possible as well, although it is less likely. RECOMMENDATIONS: 1. Would follow up on the biopsy results from the colonoscopy with further care guided from those pathology reports. 2. If indeterminate, would then consider exploratory laparoscopy to obtain definitive tissue diagnosis. 3. Would consult Oncology Service based on the pathology report. 4. Pain control per primary team. At this time, no further endoscopies are planned and we will follow peripherally at this time. Please call with any questions. Job ID: [id number]
--- NOTE | 2019-07-14 21:27 | PDOC.HOSPP ---
- Subjective Encounter Date: 07/14/19 Encounter Time: 10:00 Subjective: no overnight events. This morning, feels well and has no complaints. - Objective Vital Signs & Weight: Vital Signs (12 hours) Temp Pulse Resp BP Pulse Ox 07/14/19 20:00 98.7 F 98 18 151/80 H 96 Weight Admit Weight 129 lb 4.8 oz Weight 129 lb 4.8 oz I&O: 07/13/19 07/14/19 07/15/19 06:59 06:59 06:59 Intake Total 3825 2500 1000 Output Total 2200 1350 Balance 1625 1150 1000 Result Diagrams: 07/14/19 05:20 07/14/19 05:20 Hospitalist ROS - Review of Systems Constitutional: denies: fever, chills, sweats, weakness, malaise, other Respiratory: denies: cough, dry, shortness of breath, hemoptysis, SOB with excertion, pleuritic pain, sputum, wheezing, other Cardiovascular: denies: chest pain, palpitations, orthopnea, paroxysmal noc. dyspnea, edema, light headedness, other Gastrointestinal: denies: nausea, vomiting, abdominal pain, diarrhea, constipation, melena, hematochezia, other Genitourinary: denies: dysuria, frequency, incontinence, hematuria, retention, other - Medication Medications: Active Medications Generic Name Dose Route Start Last Admin Trade Name Freq PRN Reason Stop Dose Admin Acetaminophen 650 mg 07/09/19 20:17 07/13/19 12:53 Tylenol PO 650 mg Q4H PRN Administration Headache/Fever/Mild Pain (1-3) Potassium Chloride/Dextrose/Sod Cl 1,000 ml in 1,000 mls @ 125 mls/hr 20:30 07/14/19 13:27 D5 1/2 Ns W/10 Meq Kcl IV Not Given .Q8H GABRIELA Morphine Sulfate 4 mg 07/09/19 20:17 07/12/19 15:49 Morphine SLOW IVP 4 mg Q4H PRN Administration Severe Pain (7-10) Pantoprazole Sodium 40 mg 07/10/19 09:00 07/14/19 08:07 Protonix IVP 40 mg DAILY GABRIELA Administration Sodium Chloride 10 ml 07/09/19 20:29 07/12/19 07:51 Normal Saline Pf FS 10 ml PRN PRN Administration RECONSTITUTION - Exam General Appearance: NAD, awake alert Heart: RRR, no murmur, no gallops, no rubs, normal peripheral pulses Respiratory: CTAB, no wheezes, no rales, no ronchi, normal chest expansion, no tachypnea, normal percussion Gastrointestinal: non-tender, normal bowel sounds, distended (improved compared to yesterday) Psychiatric: normal affect, normal behavior, A&O x 3 Hosp A/P - Plan #pancreatic mass #splenic flexure edema -pending biopsy results -tolerating pureed diet has regular bowel movements -management pending biopsy results -will continue pureed diet otherwise management unchanged
[2019-07-15] MEDS: D5 1/2 NS w/10 mEq KCl 1,000 ML/1,000 ML BAG IV SCH ×2 (06:16→11:13)
[2019-07-15 06:17] LABS: Phosphorus 2.9 mg/dL (2.3-4.7)
[2019-07-15 07:26] VITALS: BP 124/78; TEMP 98.8
[2019-07-15] MEDS: Pantoprazole 40 MG VIAL IVP SCH (08:17)
[2019-07-15 08:55] LABS: Lipase 420 U/L (8-78)
--- NOTE | 2019-07-15 16:18 | PRG ---
DATE OF SERVICE: 07/13/2019 SUBJECTIVE: Mr. Arellano is without pain. He has been eating today. I did talk with Pathology as his report was still pending, and the pathologist notes that no malignancy was seen, and his colon biopsy was just hyperplastic tissue and inflammatory response. OBJECTIVE: VITAL SIGNS: T-max 100.9 on 07/12, 98.8 today. Blood pressure 124/79. ABDOMEN: Soft, slightly protuberant. There is rebound. There is no guarding. LABORATORY DATA: Hemoglobin stable at 9. White count was down to 8.5 yesterday from 13.3 on 07/10. Platelet count 623 on . Sodium 136, potassium 4, chloride 107, bicarb 23, glucose 137. Phosphorus was 2.2 yesterday, 2.9 today. Lipase is 420, down from 454. It was 1333 on . CA 19-9 was 24 on 07/09. DIAGNOSTIC STUDIES: CT scan was reviewed previously in admitting notes at the clinic. ASSESSMENT: Changes of inflammation at tail of pancreatitis with some extrinsic compression of the colon, both endoscopically and by CT. Colonoscopy revealed no evidence of malignancy or internal colonic lesions. This would be what we expected based on the fact that he had a normal colonoscopy in 2017, and he was being evaluated for anemia at that time. There are some large lymph nodes and inflammation in the mesentery and involved in the colon and the small bowel. It appears to have a component of acute pancreatitis with this. I did review the patient's case with Dr. Parminder Bautista of [facility] who specialized in pancreatic surgery. He had actually seen this patient when we had evaluated him several years ago for some cystic lesions of the pancreas. At that time in 2016, he had undergone an endoscopic ultrasound with fine needle aspiration with elevated lipase levels in the fluid, but also slightly elevated CEA. It was felt that this was likely pancreatic pseudocyst and not an intrapancreatic mucinous neoplasia (IPMN). Dr. Bautista informed me he followed him there yearly and actually his last CT there in August 2018 was normal with no pancreatic cyst seen. It was felt that these were likely pancreatic pseudocysts that had resolved. In light of this appearance of a completely normal pancreas, no cystic lesions in August 2018, I think that the lesions we are seeing now are not related to malignancy, but probably related to an acute episode of pancreatitis. Mr. Arellano is vague about his alcohol use, but he has been a drinker in the past. He has had episodes of pancreatitis in the past. I think probably what we are seeing is a sequela of pancreatitis. The other possibility is that there is a malignancy that is extrinsically compressing the colon, but not related to the colon, although to find that out, it is going to take endoscopic ultrasound and biopsy, and that is not available here as he is improving and eating and has no fever. I think he can go home, avoid alcohol, and repeat CAT scan in the outpatient setting in 2 to 3 weeks. If we are not seeing some improvement or worsening, then he would need to have an endoscopic ultrasound examination of the body and tail of the pancreas region. I have discussed this with Dr. Bautista, and he agrees, and I have discussed this with the patient's hospitalist today, Dr. Linares. I have discussed with the patient. He will follow up. PLANS: He can go home on a low-residue diet with daily laxative, and he needs to avoid all alcohol. We will see him in the office in 2 weeks. Precautions for fever, recurrent signs and symptoms of obstruction, nausea, vomiting, or worsening pain, he would need to return to the hospital. Job ID: [id number]
--- NOTE | 2019-07-18 01:35 | DIS ---
DATE OF ADMISSION: 07/09/2019 DATE OF DISCHARGE: 07/15/2019 HISTORY: Mr. Arellano is a 64-year-old male with medical history of hypertension, multiple episodes of pancreatitis, who presented with periumbilical pain. He was diagnosed with acute alcoholic pancreatitis 1. Acute pancreatitis. 2. CT scan showed no pancreatic cyst, however, did show evidence of extrinsic compression of the colon and enlarging right renal cyst. 3. Colonoscopy was carried out and biopsy of a circumferential mass lesion at the area of the splenic flexure was taken. 4. However, the biopsy came back as active colitis with hyperplastic reactive features. The patient tolerated diet and had multiple normal bowel movements in the days prior to discharge. 5. The patient was requested to follow up with his [facility] oncologist after discharge. PHYSICAL EXAMINATION: VITAL SIGNS: Blood pressure 124/78, temperature 98.8 Fahrenheit, pulse 84, respiratory rate 16, oxygen saturation 94% on room air. GENERAL: Lying comfortably in bed, no distress. HEART: Regular rate and rhythm. No murmur. No gallops. No rubs. Normal peripheral pulses. RESPIRATORY: Clear to auscultation bilaterally. No wheezes, no rales, no rhonchi. Normal chest expansion. GI: Nontender. Normal bowel sounds. Distended, but improved compared to the day prior to discharge. PSYCHIATRIC: Normal affect. Normal behavior. Alert and oriented x3. DISCHARGE MEDICATIONS: New medications: None. Continued medications: 1. Sennosides. 2. Multivitamin,. 3. Omeprazole. 4. Ascorbic acid. 5. Ferrous sulfate. 6. Creon. 7. Cyclobenzaprine. 8. Amlodipine. Modified medications: 1. Docusate from 100 mg oral twice daily as needed oral twice daily scheduled. Job ID: [id number] MTDD
== END 2019-07-15 19:01 | disposition home or self-care (01) | DRG 439 ==
LOC: T4-A 17:07
PROVIDERS: ADMIT Internal Medicine; ATTEND Internal Medicine
PROC: 0DBL8ZX Excision of Transverse Colon, Via Natural or Artificial Opening Endoscopic, Diagnostic (ICD-10-PCS; principal; 2019-07-11)
DX: K85.20 Alcohol induced acute pancreatitis without necrosis or infection (principal); C18.9 Malignant neoplasm of colon, unspecified; C77.9 Secondary and unspecified malignant neoplasm of lymph node, unspecified; J90 Pleural effusion, not elsewhere classified; K56.699 Other intestinal obstruction unspecified as to partial versus complete obstruction; K86.1 Other chronic pancreatitis; I10 Essential (primary) hypertension; K59.09 Other constipation; D64.9 Anemia, unspecified; K21.9 Gastro-esophageal reflux disease without esophagitis; E83.39 Other disorders of phosphorus metabolism; G89.29 Other chronic pain; M54.12 Radiculopathy, cervical region; Z87.891 Personal history of nicotine dependence
CPT/HCPCS: 36415; 36416; 80048; 80053; 83690; 83735; 84100; 85007; 85014; 85018; 85025; 85027; 86301; 88305; C9113; J1885; J2001; J2270; J2704; J3480; J7050

== ENCOUNTER 2019-08-13 10:18 | Outpatient (CLI) | payer MEDICARE, MEDICAID ==
[2019-08-13] MEDS ORDERED: Iopamidol 370 76% 100 ML VIAL ONE (11:15)
--- NOTE | 2019-08-13 16:12 | CT ---
CT OF THE ABDOMEN WITHOUT AND WITH CONTRAST: COMPARISON: 07/09/19. HISTORY: Follow-up pancreatitis with palpable mass in the pancreas. TECHNIQUE: Multiple contiguous axial images were obtained in a CT of the abdomen only without and with IV contr ast. Sagittal and coronal reformats were performed. FINDINGS: The previously seen inflammatory change in the left upper quadrant of the abdomen and surrounding the pancreas has significantly improved. No suspicious enhancing lesions are seen within the pancreas. T here is a 1.2 cm hypodensity adjacent to the transverse colon in the left upper quadrant of the abdom en. This is in the region where the large fluid collection was seen adjacent to the transverse colon containing a fluid fluid level and likely represents the sequela from a prior pseudocyst in this loc ation. There is a 1.9 cm area of soft tissue density in the transverse colon slightly more towards th e midline from this previously described mass/soft tissue density. This could also represent sequela from a prior pseudocyst. A colonic mass cannot be entirely excluded in this location. No residual low density fluid collection is identified. The liver, gallbladder, left kidney, adrenal glands, and pancreas are unremarkable. Shrapnel is seen adjacent to the right kidney. There is a cyst in the right kidney measuring 2.0 cm in size. No abdominal adenopathy is seen. Atherosclerotic calcifications are seen in the aorta. The osseous structures and visualized inferior thorax are unremarkable. The abdominal wall soft tissu es are unremarkable. IMPRESSION: 1. There has been significant improvement in the inflammatory change from pancreatitis in the le ft upper quadrant of the abdomen. There are two areas of soft tissue density to the transverse colon in the left upper quadrant of the abdomen. The largest area is slight more towards the midline. This could represent sequela from prior inflammation in this location, but an underlying mass must be excl uded. Correlation with colonoscopy. 2. Right renal cyst. POS: EAA
== END 2019-08-13 10:19 | disposition home or self-care (01) ==
LOC: BICCT 10:18
PROVIDERS: ATTEND Internal Medicine Gastroenterology
DX: K85.90 Acute pancreatitis without necrosis or infection, unspecified (principal); K59.00 Constipation, unspecified; K86.89 Other specified diseases of pancreas; D64.9 Anemia, unspecified; N28.1 Cyst of kidney, acquired; K63.89 Other specified diseases of intestine
CPT/HCPCS: 74170; Q9967

== ENCOUNTER 2020-01-23 10:01 | Outpatient (CLI) | payer MEDICARE, MEDICAID ==
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
[2020-01-23] MEDS ORDERED: Iopamidol-370 76% 500 ML 1 ML ONE (15:26)
== END 2020-01-23 10:02 | disposition home or self-care (01) ==
LOC: BICCT 10:01
PROVIDERS: ATTEND Physician Assistant Medical
DX: K59.00 Constipation, unspecified (principal); K85.90 Acute pancreatitis without necrosis or infection, unspecified; K86.1 Other chronic pancreatitis; D64.9 Anemia, unspecified; K63.89 Other specified diseases of intestine; N28.1 Cyst of kidney, acquired
CPT/HCPCS: 74170; 82565; Q9967

== ENCOUNTER 2020-07-27 07:33 | Outpatient (CLI) | payer MEDICARE, MEDICAID ==
[2020-07-27] MEDS ORDERED: Iopamidol 370 76% 100 ML VIAL ONE (10:29)
== END 2020-07-27 07:34 | disposition home or self-care (01) ==
LOC: BICCT 07:33
PROVIDERS: ATTEND Physician Assistant Medical
DX: K85.90 Acute pancreatitis without necrosis or infection, unspecified (principal); K86.1 Other chronic pancreatitis; N28.1 Cyst of kidney, acquired; K86.89 Other specified diseases of pancreas
CPT/HCPCS: 74170; 82565; Q9967

== ENCOUNTER 2021-02-04 09:34 | Outpatient (CLI) | payer MEDICARE, MEDICAID ==
[2021-02-04] MEDS ORDERED: Iopamidol-370 76% 500 ML 1 ML ONE (12:00)
== END 2021-02-04 09:35 | disposition home or self-care (01) ==
LOC: BICCT 09:34
PROVIDERS: ATTEND Internal Medicine Gastroenterology
DX: K86.1 Other chronic pancreatitis (principal); K86.9 Disease of pancreas, unspecified; R93.3 Abnormal findings on diagnostic imaging of other parts of digestive tract
CPT/HCPCS: 74170; Q9967

== ENCOUNTER 2024-11-11 08:24 | Outpatient (CLI) | payer OTHER, MEDICAID ==
[2024-11-11 09:20] LABS: Estimated GFR - POC 65.0
[2024-11-11] MEDS ORDERED: Iopamidol 370 76% 100 ML VIAL ONE (10:09)
== END 2024-11-11 08:25 | disposition home or self-care (01) ==
LOC: CT 08:24
PROVIDERS: ATTEND Internal Medicine Gastroenterology
DX: K86.1 Other chronic pancreatitis (principal); Z80.0 Family history of malignant neoplasm of digestive organs; K86.89 Other specified diseases of pancreas
CPT/HCPCS: 36415; 74170; 82565